=== PATIENT | female | born 1980 | race Caucasian/White ===

== ENCOUNTER 2021-08-07 23:17 | Emergency (ER) | payer MEDICAID, SELFPAY ==
[2021-08-07 23:25] VITALS: BP 112/64; PULSE 95; RESP 18; TEMP 36.6; O2SAT 98; BMI 25.8
== END 2021-08-08 01:19 | disposition left against medical advice (07) ==
PROVIDERS: Emergency Provider Emergency Medicine
DX: M79.605 Pain in left leg (principal); M79.604 Pain in right leg; R10.31 Right lower quadrant pain
CPT/HCPCS: 99281